=== PATIENT | male | born 1970 ===

== ENCOUNTER 2019-07-16 11:57 | Emergency (ER) | payer SELFPAY ==
[~2019-07-16] VITALS: Ht 172.7 cm; Wt 136.1 kg
[2019-07-16 11:58] VITALS: Ht 172.7 cm; Wt 136.1 kg
[2019-07-16 15:49] VITALS: BP 160/52
== END 2019-07-16 14:00 | disposition home or self-care (01) ==
LOC: ED 11:57
DX: J40 Bronchitis, not specified as acute or chronic (principal); I10 Essential (primary) hypertension
CPT/HCPCS: Q0092